=== PATIENT | female | born 1985 | race African-American/Black ===

== ENCOUNTER 2019-09-28 10:10 | Emergency (ER) | payer BC ==
[~2019-09-28] VITALS: Ht 172.7 cm; Wt 107.5 kg
[2019-09-28 10:15] VITALS: BP 117/87
[2019-09-28] MEDS ORDERED: ACET-704 PO (10:31)
[2019-09-28] MEDS ORDERED: LIDO20SO10 MM (10:31)
--- NOTE | 2019-09-28 10:31 | PHYS DOC ---
Adult General Chief Complaint Chief Complaint: DENTAL PROBLEM HPI HPI Patient is a 34-year-old female who presents with complaint of right lower dental pain after having had 3 for teeth pulled earlier in the week. She states the dentist had told her to take Tylenol or ibuprofen as needed for the pain and she states that it had been working until yesterday. She states that the pain had gotten a lot worse. She states that she called the dentist and they would not be able to get her in until Sunday. Patient states that she had difficulty with sleeping last night due to the level of pain.[] Review of Systems Review of Systems Constitutional: Denies fever or chills [] HENT: Positive mouth/dental pain[] Respiratory: Denies cough or shortness of breath [] Cardiovascular: No additional information not addressed in HPI [] Neurologic: Denies headache, focal weakness or sensory changes [] Allergies Allergies Allergies Coded Allergies Type Severity Reaction Last Updated Verified acetaminophen Adverse Reaction Unknown Nausea 09/28/19 Yes hydrocodone Adverse Reaction Unknown Nausea 09/28/19 Yes Physical Exam Physical Exam Constitutional: Well developed, well nourished, no acute distress, non-toxic appearance. [] HENT: Normocephalic, atraumatic, bilateral external ears normal, oropharynx mois t, no oral exudates, nose normal. [] Cardiovascular:Heart rate regular rhythm, no murmur [] Lungs & Thorax: Bilateral breath sounds clear to auscultation [] Skin: Warm, dry, no erythema, no rash. [] EKG EKG [] Radiology/Procedures Radiology/Procedures [] Course & Med Decision Making Course & Med Decision Making Pertinent Labs and Imaging studies reviewed. (See chart for details) [] Dragon Disclaimer Dragon Disclaimer This electronic medical record was generated, in whole or in part, using a voice recognition dictation system. Departure Departure: Impression: Primary Impression: Post-op pain Disposition: 01 HOME, SELF-CARE Condition: STABLE Referrals: PCP,NO (PCP) Patient Instructions: Pain Relief Preoperatively and Postoperatively Scripts Lidocaine HCl (Lidocaine HCl Viscous) 15 Ml Solution 1 ML MM Q2HR PRN for MOUTH PAIN, #100 ML Apply 1-2 mL's of lidocaine 2 affected teeth every 2-4 hours as needed for dental pain/postoperative pain Prov: NATALIIA YOUSSEF Jr. DO 09/28/19 Acetaminophen With Codeine (TYLENOL WITH CODEINE #3 TABLET) 1 Each Tablet 1-2 TAB PO PRN Q6HRS PRN for pain MDD 4 Tablet(s), #15 TAB 0 Refills Prov: NATALIIA YOUSSEF Jr. DO 09/28/19 NATALIIA YOUSSEF Jr. DO Sep 28, 2019 10:31
== END 2019-09-28 10:34 | disposition home or self-care (01) ==
LOC: ER 10:10
DX: G89.18 Other acute postprocedural pain (principal); K08.89 Other specified disorders of teeth and supporting structures; Z88.5 Allergy status to narcotic agent; Z88.6 Allergy status to analgesic agent
CPT/HCPCS: 99283

== ENCOUNTER 2021-01-08 10:07 | Emergency (ER) | payer SELFPAY ==
[~2021-01-08] VITALS: Ht 172.7 cm; Wt 101.7 kg
[~2021-01-08 10:07] MED LIST: ACET-704 PO; LIDO20SO10 MM
[2021-01-08 10:10] VITALS: BP 103/61
[2021-01-08] MEDS ORDERED: predniSONE 10 MG TABLET PO ONE (11:15)
[2021-01-08] MEDS ORDERED: HYDROcodone/APAP 5/325MG 1 TAB TABLET PO ONE (11:15)
[2021-01-08] MEDS ORDERED: PRED-220 PO (11:17)
--- NOTE | 2021-01-08 11:17 | PHYS DOC ---
Past History Past Medical History: Hypothyroid Past Surgical History: Cholecystectomy, Tonsillectomy, Other Additional Past Surgical Histo: L-ACL Alcohol Use: None General Adult EDM: Chief Complaint: DENTAL PROBLEM HPI: HPI: 35-year-old female presents with left-sided dental pain. She has an infection of tooth #21. Her dentist called in amoxicillin to help with the infection. The patient states that the swelling around the tooth seems to be improving but she is having pain at the TMJ on that side. She has intermittent TMJ issues. She denies change in hearing. She denies fever or chills. She has no other complaints this time. Review of Systems: Review of Systems: Constitutional: Denies fever or chills Eyes: Denies change in visual acuity HENT: Dental pain Respiratory: Denies cough or shortness of breath Cardiovascular: Denies chest pain or edema GI: Denies abdominal pain, nausea, vomiting, bloody stools or diarrhea : Denies dysuria Musculoskeletal: Denies back pain or joint pain Integument: Denies rash Neurologic: Denies headache, focal weakness or sensory changes Endocrine: Denies polyuria or polydipsia Lymphatic: Denies swollen glands Psychiatric: Denies depression or anxiety Allergies: Allergies: Allergies Coded Allergies Type Severity Reaction Last Updated Verified No Known Drug Allergies 01/08/21 No Physical Exam: PE: Constitutional: Well developed, well nourished, no acute distress, non-toxic appearance. [] HENT: Normocephalic, atraumatic, bilateral external ears normal, tympanic membranes normal, mild inflammation around tooth #21, audible click and tenderness of the left TMJ. [] Eyes: PERRLA, EOMI, conjunctiva normal, no discharge. [] Neck: Normal range of motion, no tenderness, supple, no stridor. [] Cardiovascular: Heart rate regular rhythm, no murmur [] Lungs & Thorax: Bilateral breath sounds clear to auscultation [] Abdomen: Bowel sounds normal, soft, no tenderness, no masses, no pulsatile masses. [] Skin: Warm, dry, no erythema, no rash. [] Back: No tenderness, no CVA tenderness. [] Extremities: No tenderness, no cyanosis, no clubbing, ROM intact, no edema. [] Neurologic: Alert and oriented X 3, normal motor function, normal sensory function, no focal deficits noted. [] Psychologic: Affect normal, judgement normal, mood normal. [] EKG: EKG: [] Radiology/Procedures: Radiology/Procedures: [] Heart Score: C/O Chest Pain: N/A Risk Factors: Risk Factors: DM, Current or recent (<one month) smoker, HTN, HLP, family history of CAD, obesity. Risk Scores: Score 0 - 3: 2.5% MACE over next 6 weeks - Discharge Home Score 4 - 6: 20.3% MACE over next 6 weeks - Admit for Clinical Observation Score 7 - 10: 72.7% MACE over next 6 weeks - Early Invasive Strategies Course & Med Decision Making: Course & Med Decision Making Pertinent Labs and Imaging studies reviewed. (See chart for details) I will give the patient 50 mg of prednisone and a [place] 5/325 in the ED. I will discharge her with a prescription for prednisone for 3 more days. She is stable for discharge at this time. [] Dragon Disclaimer: Dragon Disclaimer: This electronic medical record was generated, in whole or in part, using a voice recognition dictation system. Departure Departure: Impression: Primary Impression: TMJ (dislocation of temporomandibular joint) Qualified Codes: S03.00XA - Dislocation of jaw, unspecified side, initial encounter Disposition: HOME / SELF CARE / HOMELESS Condition: STABLE Referrals: PCP,UNKNOWN (PCP) Patient Instructions: Temporomandibular Joint Pain-Brief Scripts Prednisone (PREDNISONE) 10 Mg Tablet 50 MG PO DAILY for TMJ pain for 3 Days, #15 TAB Prov: HERBERT YBARRA DO 01/08/21 HERBERT YBARRA DO Jan 08, 2021 11:17
== END 2021-01-08 11:25 | disposition home or self-care (01) ==
LOC: ER 10:07
DX: M26.602 Left temporomandibular joint disorder, unspecified (principal); Z90.49 Acquired absence of other specified parts of digestive tract
CPT/HCPCS: 99283; J7512

== ENCOUNTER 2021-02-06 08:58 | Emergency (ER) | payer SELFPAY ==
[~2021-02-06] VITALS: Ht 172.7 cm; Wt 101.7 kg
[2021-02-06 08:58] VITALS: BP 109/67
[~2021-02-06 08:58] MED LIST changes: +PRED-220 PO
[2021-02-06] MEDS ORDERED: diphenhydrAMINE 50 MG/ML VIAL IVP ONE (09:30)
[2021-02-06] MEDS ORDERED: IV NORMAL SALINE 1,000ML 1,000 ML IV ONE (09:30)
[2021-02-06] MEDS ORDERED: KETOROLAC 30 MG/ML VIAL. IVP ONE (09:30)
[2021-02-06] MEDS ORDERED: CYCLOBENZAPRINE 10 MG TABLET. PO ONE (09:30)
[2021-02-06] MEDS ORDERED: METOCLOPRAMIDE HCL 10 MG/2 ML VIAL. IVP ONE (09:30)
--- NOTE | 2021-02-06 09:30 | PHYS DOC ---
Past History Past Medical History: Hypothyroid, Other Past Surgical History: Cholecystectomy, Tonsillectomy, Other Additional Past Surgical Histo: L-ACL, BILATERAL TMJ PROCEDURES Alcohol Use: None General Adult EDM: Chief Complaint: DENTAL PROBLEM HPI: HPI: 36-year-old female presents with left-sided dental pain. The patient has h istory of TMJ. She went to the dentist to have an abscess dealt with in the lower aspect of the left side of her mouth. That has improved. At the same time, she was given prednisone for 7 days TMJ discomfort. The prednisone helped, but the pain has resumed. It is increased to the point where she now has a left-sided global headache. Her jaw pain has made it very difficult to eat. She is not sure who to see next to develop a treatment plan. She has been taking 800 mg of ibuprofen twice a day and Tylenol at least twice a day. She denies fever or chills. Review of Systems: Review of Systems: Constitutional: Denies fever or chills Eyes: Denies change in visual acuity HENT: Left-sided jaw pain Respiratory: Denies cough or shortness of breath Cardiovascular: Denies chest pain or edema GI: Denies abdominal pain, nausea, vomiting, bloody stools or diarrhea : Denies dysuria Musculoskeletal: Denies back pain or joint pain Integument: Denies rash Neurologic: Headache. Denies focal weakness or sensory changes Endocrine: Denies polyuria or polydipsia Lymphatic: Denies swollen glands Psychiatric: Denies depression or anxiety Allergies: Allergies: Allergies Coded Allergies Type Severity Reaction Last Updated Verified No Known Drug Allergies 01/08/21 No Physical Exam: PE: Constitutional: Well developed, well nourished, no acute distress, non-toxic appearance. [] HENT: Normocephalic, atraumatic, bilateral external ears normal, oropharynx moist, no oral exudates, nose normal. Tenderness over the left TMJ and masseter muscle area[] Eyes: proptosis. PERRLA, EOMI, conjunctiva normal, no discharge. [] Neck: Normal range of motion, no tenderness, supple, no stridor. [] Cardiovascular: Heart rate regular rhythm, no murmur [] Lungs & Thorax: Bilateral breath sounds clear to auscultation [] Abdomen: Bowel sounds normal, soft, no tenderness, no masses, no pulsatile masses. [] Skin: Warm, dry, no erythema, no rash. [] Back: No tenderness, no CVA tenderness. [] Extremities: No tenderness, no cyanosis, no clubbing, ROM intact, no edema. [] Neurologic: Alert and oriented X 3, normal motor function, normal sensory func tion, no focal deficits noted. [] Psychologic: Affect normal, judgement normal, mood normal. [] EKG: EKG: [] Radiology/Procedures: Radiology/Procedures: [] Heart Score: C/O Chest Pain: N/A Risk Factors: Risk Factors: DM, Current or recent (<one month) smoker, HTN, HLP, family history of CAD, obesity. Risk Scores: Score 0 - 3: 2.5% MACE over next 6 weeks - Discharge Home Score 4 - 6: 20.3% MACE over next 6 weeks - Admit for Clinical Observation Score 7 - 10: 72.7% MACE over next 6 weeks - Early Invasive Strategies Course & Med Decision Making: Course & Med Decision Making Pertinent Labs and Imaging studies reviewed. (See chart for details) The patient's labs are significant for hemoglobin of 9.1 with hematocrit of 30. I have no previous for comparison. It appears to be microcytic anemia. For her headache I have given her 1 L normal saline, 30 mg of Toradol, 10 mg of Reglan, 25 mg of Benadryl. I have additionally given her 10 mg of Flexeril for her jaw discomfort. She is feeling significantly better at this time. I will discharge her with Flexeril 3 times a day for 10 days. She will follow-up with maxillofacial specialist. She is stable for discharge at this time. [] Dragon Disclaimer: Debora Disclaimer: This electronic medical record was generated, in whole or in part, using a voice recognition dictation system. Departure Departure: Impression: Primary Impression: Left-sided temporomandibular joint pain-dysfunction syndrome Additional Impression: Headache Disposition: HOME / SELF CARE / HOMELESS Condition: IMPROVED Referrals: PCP,UNKNOWN (PCP) Patient Instructions: Temporomandibular Problems Scripts Cyclobenzaprine Hcl (CYCLOBENZAPRINE HCL) 10 Mg Tablet 1 TAB PO TID for jaw pain, #30 TAB Prov: HERBERT YBARRA DO 02/06/21 HERBERT YBARRA DO Feb 06, 2021 09:30
[2021-02-06 09:56] LABS: BASO # 0.1 x10^3/uL (0.0-0.2); BASO % 1 % (0-3); EOS # 0.1 x10^3/uL (0.0-0.7); EOS % 1 % (0-3); HEMATOCRIT 30.4 % (36.0-47.0); HEMOGLOBIN 9.1 g/dL (12.0-15.5); LYMPH # 0.9 x10^3/uL (1.0-4.8); LYMPH % 10 % (24-48); MEAN CORPUSCULAR HEMOGLOBIN 18 pg (25-35); MEAN CORPUSCULAR HGB CONC 30 g/dL (31-37); MEAN CORPUSCULAR VOLUME 58 fL (79-100); MONO # 0.3 x10^3/uL (0.0-1.1); MONO % 3 % (0-9); NEUT # 7.9 x10^3uL (1.8-7.7); NEUT % 85 % (31-73); PLATELET COUNT 478 x10^3/uL (140-400); RED BLOOD COUNT 5.21 x10^6/uL (3.50-5.40); RED CELL DISTRIBUTION WIDTH 21.2 % (11.5-14.5); WHITE BLOOD COUNT 9.3 x10^3/uL (4.0-11.0)
[2021-02-06 10:02] LABS: CALCIUM 9.7 mg/dL (8.5-10.1); CREATININE 0.9 mg/dL (0.6-1.0); GFR 86.2; POTASSIUM 4.7 mmol/L (3.5-5.1)
[2021-02-06 10:07] LABS: ALBUMIN/GLOBULIN RATIO 1.2 (1.0-1.7); TOTAL BILIRUBIN 0.3 mg/dL (0.2-1.0); TOTAL PROTEIN 7.3 g/dL (6.4-8.2)
[2021-02-06 11:38] LABS: OVALOCYTES PRESENT; PLT ESTIMATE INCREASED (ADEQUATE); TARGET CELLS PRESENT
[2021-02-06 11:39] LABS: HYPOCHROMIA PRESENT
[2021-02-06 11:40] LABS: ANISOCYTOSIS SLIGHT; MICROCYTOSIS SLIGHT
[2021-02-06 11:42] LABS: TEAR DROP CELLS PRESENT
[2021-02-06] MEDS ORDERED: CYCL-331 PO (11:43)
== END 2021-02-06 11:50 | disposition home or self-care (01) ==
LOC: ER 08:58
DX: M26.622 Arthralgia of left temporomandibular joint (principal); R51.9 Headache, unspecified; Z90.49 Acquired absence of other specified parts of digestive tract
CPT/HCPCS: 36415; 80053; 85025; 96361; 96374; 96375; 99284; J1200; J1885; J2765; J7030